=== PATIENT | female | born 1950 | race African-American/Black ===

== ENCOUNTER → 2018-11-29 | Outpatient (CLI) | payer OTHER | LOC: RAD 10:57 | DX: Z12.31 Encounter for screening mammogram for malignant neoplasm of breast (principal) ==

== ENCOUNTER → 2020-01-11 | Outpatient (CLI) | payer OTHER | LOC: BC 08:57 | PROVIDERS: ATTEND Family Medicine | DX: Z12.31 Encounter for screening mammogram for malignant neoplasm of breast (principal) ==

== ENCOUNTER → 2021-02-21 | Outpatient (CLI) | payer OTHER | LOC: BC 14:27 | PROVIDERS: ATTEND Family Medicine | DX: Z12.31 Encounter for screening mammogram for malignant neoplasm of breast (principal) ==